=== PATIENT | female | born 1970 | race American Indian/Alaskan Native ===

== ENCOUNTER 2018-06-05 14:15 | Emergency (ER) | payer SELFPAY ==
--- NOTE | 2018-06-05 15:41 | Emergency Department Report ---
Blank Doc - Documentation Documentation: 47 y o female presents with throbbing, constant head ppain temporal, frontal and back no injuries trauma fall hx of headaches Meds fioricet or benadryl/ zofran cocktail IM Reevalute
== END 2018-06-05 17:00 | disposition left against medical advice (07) ==
LOC: ED 14:15

== ENCOUNTER 2018-11-14 13:00 | Emergency (ER) | payer OTHER ==
[2018-11-14 13:28] VITALS: BP 147/96
[2018-11-14] MEDS ORDERED: TORADOL IM ONE (14:24)
[2018-11-14] MEDS ORDERED: ULTRAM PO ONE (14:24)
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
== END 2018-11-14 16:17 | disposition home or self-care (01) ==
LOC: ED 13:00
DX: S16.1XXA Strain of muscle, fascia and tendon at neck level, initial encounter (principal); S06.0X0A Concussion without loss of consciousness, initial encounter; M25.512 Pain in left shoulder; I10 Essential (primary) hypertension; Z98.51 Tubal ligation status; Z79.899 Other long term (current) drug therapy; V49.49XA Driver injured in collision with other motor vehicles in traffic accident, initial encounter; Y93.89 Activity, other specified; Y92.410 Unspecified street and highway as the place of occurrence of the external cause; Y99.8 Other external cause status
CPT/HCPCS: 70450; 72040; 73030; 96372; 99284; J1885

== ENCOUNTER 2021-03-18 12:49 | Emergency (ER) | payer OTHER ==
[2021-03-18] MEDS ORDERED: LIDOCAINE (4%) 40 MG/ML TOPICAL SOLN 50 ML BOTTLE TP ONE (13:42)
[2021-03-18] MEDS ORDERED: ACETAMINOPHEN 325 MG TAB PO ONE (13:42)
[2021-03-18] MEDS ORDERED: METOCLOPRAMIDE 10 MG/2 ML INJ IV ONE (13:42)
[2021-03-18] MEDS ORDERED: KETOROLAC 30 MG/1 ML INJ IV ONE (13:42)
[2021-03-18] MEDS ORDERED: diphenhydrAMINE 50 MG/ML VIAL IV ONE (13:42)
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
[2021-03-18 14:22] LABS: Basophils % (Auto) 0.8 % (0.0-1.8); Eosinophils % (Auto) 0.2 % (0.0-4.3); Hematocrit 41.8 % (30.3-42.9); Hemoglobin 14.1 gm/dl (10.1-14.3); Lymphocytes % (Auto) 27.3 % (13.4-35.0); Mean Corpuscular HGB Conc 34 % (30-34); Mean Corpuscular Volume 85 fl (79-97); Monocytes # (Auto) 0.5 K/mm3 (0.0-0.8); Monocytes % (Auto) 12.4 % (0.0-7.3); Platelet Count 160 K/mm3 (140-440); Red Blood Count 4.92 M/mm3 (3.65-5.03); Red Cell Distribution Width 13.4 % (13.2-15.2)
[2021-03-18 14:35] LABS: BUN/Creatinine Ratio 6; Blood Urea Nitrogen 5 mg/dL (7-17); Hemolysis Index 5
--- NOTE | 2021-03-18 14:44 | Electrocardiograph Report ---
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
--- NOTE | 2021-03-18 14:58 | XRay Report ---
CHEST 2 VIEWS INDICATION / CLINICAL INFORMATION: Chest Pain. COMPARISON: None available. FINDINGS: SUPPORT DEVICES: None. HEART / MEDIASTINUM: No significant abnormality. LUNGS / PLEURA: No significant pulmonary or pleural abnormality. No pneumothorax. ADDITIONAL FINDINGS: No significant additional findings. IMPRESSION: 1. No acute findings. Signer Name: Brian Morrell MD Signed: 03/18/2021 2:54 PM Workstation Name: [id number]
[2021-03-18 16:35] VITALS: BP 122/74
== END 2021-03-18 16:36 | disposition home or self-care (01) ==
LOC: ED 12:49
DX: Z72.820 Sleep deprivation (principal); Z68.33 Body mass index [BMI] 33.0-33.9, adult; R07.9 Chest pain, unspecified; I10 Essential (primary) hypertension
CPT/HCPCS: 36415; 71046; 80048; 84484; 84703; 85025; 85379; 93005; 96374; 96375; 99284; J1200; J1885; J2765